=== PATIENT | male | born 1965 | race Caucasian/White ===

== ENCOUNTER 2016-12-21 11:52 | Inpatient (IN) | payer MEDICARE, OTHER ==
[~2016-12-21] VITALS: Ht 170.2 cm; Wt 84.0 kg
[~2016-12-21 11:52] MED LIST: ASPI-535 PO; ATOR80TA18 PO; DOCU-29 PO; EPO10ESRD IJ; HYDR100T7 PO; METO100T PO; MYL80 PO; NEPH PO; OMEG-135 PO; OSLT75C PO; SEVE800T10 PO; VALS80TA2 PO
[2016-12-21] MEDS ORDERED: ALBUTEROL 0.5% (NEB) 2.5 MG/0.5 ML AMP INH STA (12:25)
[2016-12-21] MEDS ORDERED: predniSONE 20 MG TAB PO STA (12:25)
[2016-12-21] MEDS ORDERED: IPRATROPIUM (NEB) 0.5 MG/2.5 ML AMP INH STA (12:25)
--- NOTE | 2016-12-21 12:52 | RADRPT ---
PROCEDURE: XR Chest. CLINICAL INDICATION: Cough. Dyspnea. TECHNIQUE: Frontal chest x-ray was obtained. COMPARISON: Chest x-ray November 27, 2016 FINDINGS: The patient is post CABG. There is cardiomegaly. Mediastinum is not widened. No hilar masses seen . Lungs are clear of any infiltrate or mass. There is a small right pleural effusion. There is no pneumothorax. IMPRESSION: Cardiomegaly. Small right pleural effusion. No pneumonia. .Juwan Davison MD, MD Date Time Electronically viewed and signed by .Juwan Davison MD, MD on 12/21/2016 12:52 .A/
[2016-12-21 13:28] LABS: BASOPHILS % 0.5 % (0.0-2.0); EOSINOPHILS # 0.2 10^3/ul (0.0-0.5); EOSINOPHILS % 1.6 % (0.0-7.0); HEMATOCRIT 33.6 % (42.0-52.0); HEMOGLOBIN 11.1 g/dl (14.0-18.0); LYMPHOCYTES # 1.8 10^3/ul (0.8-2.9); LYMPHOCYTES % 17.2 % (15.0-51.0); MEAN CORPUSCULAR HEMOGLOBIN 32.5 pg (29.0-33.0); MEAN CORPUSCULAR HGB CONC 33.2 g/dl (32.0-37.0); MEAN CORPUSCULAR VOLUME 97.8 fl (82.0-101.0); MEAN PLATELET VOLUME 8.6 fl (7.4-10.4); MONOCYTE # 0.7 10^3/ul (0.3-0.9); MONOCYTES % 6.8 % (0.0-11.0); NEUTROPHIL # 7.7 10^3/ul (1.6-7.5); NEUTROPHILS % 73.9 % (39.0-77.0); PLATELET COUNT 179 10^3/UL (140-440); RED BLOOD COUNT 3.43 10^6/ul (4.70-6.10); RED CELL DISTRIBUTION WIDTH 15.7 % (11.5-14.5); UNCORRECTED WBC 10.4 10^3/ul (4.8-10.8); WHITE BLOOD COUNT 10.4 10^3/ul (4.8-10.8)
[2016-12-21 13:32] LABS: CONDITION 1; LH ANALYZER COMMENTS 1
[2016-12-21 13:37] LABS: CALCIUM 9.4 mg/dl (8.4-10.2)
[2016-12-21 13:49] LABS: TROPONIN-I 0.034 ng/ml (0.00-0.12)
[2016-12-21 13:51] LABS: CREATININE 14.61 mg/dl (0.61-1.24); POTASSIUM 6.2 mmol/L (3.5-5.1)
[2016-12-21] MEDS ORDERED: DEXTROSE 50% 50 ML SYRINGE IV STA (14:27)
[2016-12-21] MEDS ORDERED: INSULIN REGULAR, HUMAN 100 UNIT/1 ML 3ML VIAL IV ONE (14:30)
--- NOTE | 2016-12-21 14:36 | ERA ---
ER Documentation Chief Complaint Date/Time DATE: 12/21/16 TIME: 14:31 Chief Complaint SOB X 2 DAYS HPI 51-year-old man presents with shortness of breath and recent cough 2 days, with generalized weakness. He has had no fevers or chills. He denies chest pain, no calf or leg swelling, no headache or blurry vision. He is requesting albuterol treatment. ROS All systems reviewed and are negative except as per history of present illness. Medications Home Meds Active Scripts Oseltamivir Phosphate* (Tamiflu*) 75 Mg Capsule, 75 MG PO BID for 5 Days, CAP Prov:BRIDGETTE TERESA 11/27/16 Simethicone* (Mylicon*) 80 Mg Tab, 160 MG PO Q6 for DISTENSION/GAS/BLOATING, # 60 TAB 0 Refills Prov:CIRA HUGGINS MD 02/13/15 Reported Medications Valsartan* (Diovan*) 80 Mg Tablet, 80 MG PO DAILY 10/19/12 Multivit/Ca Carb/B Cmplx/Fa* (Ayesha-Lyndsay*) 1 Tab Tab, 1 TAB PO DAILY 09/05/12 Epoetin Ariel (Epogen) 10,000 Units/Ml Soln, 01642 UNITS IJ MWF 09/05/12 Hydralazine Hcl* (Hydralazine Hcl*) 100 Mg Tablet, 100 MG PO Q8 08/28/12 Aspirin Ec (Aspir 81) 81 Mg Tablet.dr, 81 MG PO DAILY 08/09/12 Docusate Sodium (Dss) 100 Mg Capsule, 100 MG PO BID Y 08/09/12 Metoprolol (Lopressor) 100 Mg Tablet, 100 MG PO BID 08/09/12 Atorvastatin (Lipitor) 80 Mg Tablet, 80 MG PO HS 08/09/12 Fish Oil* (Fish Oil*) 1,000 Mg Cap, 1000 MG PO BID 08/09/12 Sevelamer Hcl* (Renagel*) 800 Mg Tablet, 800 MG PO TID 08/09/12 Allergies Allergies: Coded Allergies: No Known Allergies (Verified Allergy, 10/19/12) PMhx/Soc Coronary artery disease, end-stage kidney disease hemodialyzed on MW, last dialysis 2 days ago, chronic anemia, hypertension History of Surgery: Yes (Diaylsis Fistula- right arm, CABG-2011) Anesthesia Reaction: No Hx Neurological Disorder: No Hx Respiratory Disorders: No Hx Cardiac Disorders: Yes (HTN) Hx Psychiatric Problems: No Hx Miscellaneous Medical Probl: Yes (hemodialysis) Hx Alcohol Use: No Hx Substance Use: No Hx Tobacco Use: No Smoking Status: Never smoker FmHx Family History: No diabetes Physical Exam Vitals Vital Signs Date Time Temp Pulse Resp B/P Pulse Ox O2 Delivery O2 Flow Rate FiO2 12/21/16 13:00 Nasal Cannula 2.0 12/21/16 13:00 Nasal Cannula 2 12/21/16 12:37 88 20 98 Nasal Cannula 2.0 12/21/16 12:37 2.0 12/21/16 11:53 98.1 92 18 180/101 99 Physical Exam GENERAL: Well-developed, well-nourished, well-hydrated, in no apparent distress , looks nontoxic in appearance HEENT: Moist mucous membranes, pink conjunctiva, no cervical spine tenderness or step-off deformities, no goiter, no jaundice or icterus, extraocular movements intact without pain. No submandibular induration, and no pharyngeal erythema NEURO: Alert and oriented 3, cranial nerves II through XII intact bilaterally, pupils equal round reactive to light, no focal deficits or facial asymmetry, sensation intact distally Strength 5/5 in upper and lower extremities bilaterally CARDIAC: Regular rate and rhythm, no murmurs rubs or gallops LUNGS: Positive bibasilar crackles, no wheezing or stridor ABDOMEN: Soft nontender, no guarding, no rigidity, no rebound, no psoas sign no obturator sign. Normoactive bowel sounds SKIN: Warm and dry to touch, no abrasions, contusions, or hematomas, no lacerations, no ecchymosis, no target lesions, and without ulcers EXTREMITIES: No clubbing cyanosis or edema, calves are bilaterally symmetrical, no Homans sign, no popliteal cord sign. Distal pulses equal and bilateral PSYCH: Normal affect without agitation or irritability Result Diagram: 12/21/16 1300 12/21/16 1300 Results 24 hrs Laboratory Tests Test 12/21/16 13:00 Anion Gap 26 Basophils # 0.010^3/ul Basophils % 0.5% Blood Morphology Comment Blood Urea Nitrogen 66mg/dl Calcium Level 9.4mg/dl Carbon Dioxide Level 26mmol/L Chloride Level 95mmol/L Creatinine 14.61mg/dl Eosinophils # 0.210^3/ul Eosinophils % 1.6% Glucose Level 73mg/dl Hematocrit 33.6% Hemoglobin 11.1g/dl Lymphocytes # 1.810^3/ul Lymphocytes % 17.2% Mean Corpuscular Hemoglobin 32.5pg Mean Corpuscular Hemoglobin Concent 33.2g/dl Mean Corpuscular Volume 97.8fl Mean Platelet Volume 8.6fl Monocytes # 0.710^3/ul Monocytes % 6.8% Neutrophils # 7.710^3/ul Neutrophils % 73.9% Nucleated Red Blood Cells # 0.010^3/ul Nucleated Red Blood Cells % 0.0/100WBC Platelet Count 72964^3/UL Potassium Level 6.2mmol/L Red Blood Count 3.4310^6/ul Red Cell Distribution Width 15.7% Sodium Level 141mmol/L Troponin I 0.034ng/ml White Blood Count 10.410^3/ul Current Medications Medications (Trade) Dose Ordered Sig/Patricio Route PRN Reason Start Time Stop Time Status Last Admin Dose Admin Albuterol (Proventil 0.5% (Neb)) 10 mg ONCE STAT INH 12/21/16 12:25 12/21/16 12:27 DC 12/21/16 12:37 Ipratropium Olin (Atrovent 0.02% (Neb)) 1 mg ONCE STAT INH 12/21/16 12:25 12/21/16 12:27 DC 12/21/16 12:37 Prednisone (Prednisone) 40 mg ONCE STAT PO 12/21/16 12:25 12/21/16 12:27 DC 12/21/16 13:04 Dextrose (D50w Syringe) 50 ml ONCE STAT IV 12/21/16 14:27 12/21/16 14:29 DC Insulin Human Regular (Humulin R) 8 unit ONCE ONCE IV 12/21/16 14:30 12/21/16 14:31 Procedures/MDM IV line was established patient was placed on cardiac nurse specialist rhythm strip revealed a sinus rhythm at about 90 bpm with upright P and T waves. For complaints of shortness of breath I administered albuterol 10 mg via nebulizer, and ipratropium 1 mg via nebulizer as well as prednisone 40 mg p.o. 1 view chest x-ray performed, read by me there is cardiomegaly and sternotomy wires in place, no acute infiltrates, no pneumothorax. EKG performed, read by me reveals normal sinus rhythm at 91 bpm, normal axis, and a right ventricular conduction delay with a QRS duration of 114 ms, no concerning ST elevations or depressions noted and evidence of left ventricular hypertrophy in precordial leads. CBC was unremarkable, electrolytes revealed kidney disease and hyperkalemia at 6.2. I administered dextrose 25 g IV and regular insulin 8 units IV. Patient will be admitted to telemetry setting for dialysis and hyperkalemia management. Departure Diagnosis: Primary Impression: Hyperkalemia Additional Impression: Pulmonary edema Qualified Code: J81.0 - Acute pulmonary edema Condition: GARY Luna MD Dec 21, 2016 14:36
[2016-12-21] MEDS ORDERED: METO25TA7 PO (15:35)
[2016-12-21] MEDS ORDERED: ATOR40TA68 PO (15:36)
[2016-12-21] MEDS ORDERED: LOSA100T7 PO (15:37)
[2016-12-21 15:51] VITALS: Ht 170.2 cm; Wt 84.0 kg
[2016-12-21 16:04] VITALS: BP 189/107; PULSE 101; RESP 18
[2016-12-21 16:24] VITALS: PULSE 102
[2016-12-21] MEDS ORDERED: ONDANSETRON 4 MG INJ IV PRN (17:30)
[2016-12-21] MEDS ORDERED: ZOLPIDEM 5 MG TAB PO PRN (17:30)
[2016-12-21] MEDS ORDERED: morphine 2 MG INJ IV PRN (17:30)
[2016-12-21] MEDS ORDERED: ACETAMINOPHEN 325 MG TAB PO PRN (17:30)
[2016-12-21] MEDS ORDERED: HYDROCODONE/APAP (5/325) TAB PO PRN (17:30)
[2016-12-21] MEDS ORDERED: NACL 0.9% 3 ML SYG IV SCH (17:30)
[2016-12-21] MEDS: LOSARTAN 50 MG TAB PO SCH (18:06)
[2016-12-21] MEDS: METOPROLOL (XL) 25 MG TAB PO SCH (18:06)
--- NOTE | 2016-12-21 19:28 | HP ---
DATE OF ADMISSION: 12/21/2016 CHIEF COMPLAINT: Weakness. HISTORY OF PRESENT ILLNESS: The patient is a 51-year-old male with history of end-stage renal disea se and hypertension as well as coronary artery disease, status post bypass surgery 4 years ago. The patient presents with generalized weakness for the past several weeks. States that he did present to the ED, was given antibiotics, but continued to get worse after that. He states that he had pacheco estion, coughing, and weakness. In the ED, the patient's potassium was found to be 6.2. He does fo llow up with his manager life, Dr. Catarino Salomon, and does receive dialysis Thursday, Thursday, Thu. The patient has no other complaints at this time. PAST MEDICAL HISTORY: 1. End-stage renal disease secondary to hypertension. 2. Coronary disease, status post CABG approximately 4 years ago. HOME MEDICATIONS: 1. Aspirin. 2. Lipitor. 3. Losartan. 4. Metoprolol. 5. Multivitamin. 6. Renagel. ALLERGIES: NO KNOWN DRUG ALLERGIES. FAMILY HISTORY: Denies. SOCIAL HISTORY: Denies any current alcohol, tobacco, or drug abuse. REVIEW OF SYSTEMS: A 12-point review of systems negative except that as in HPI. PHYSICAL EXAMINATION: VITAL SIGNS: Temperature is 97.8, pulse 102, respiration is 18, BP is 189/107, saturation 96%. GENERAL: No acute distress, alert and oriented. HEENT: Normocephalic, atraumatic. LUNGS: Clear to auscultation. CARDIOVASCULAR: Regular rate and rhythm. ABDOMEN: Nondistended, nontender, soft. EXTREMITIES: No clubbing, cyanosis, or edema. LABORATORIES: White count 7.4, hemoglobin 11.1, platelets are 139. Chemistry: Sodium is 141, pota ssium is 6.2, chloride is 95, BUN 66, creatinine is 14.6, anion gap is 26. DIAGNOSTICS: Chest x-ray shows cardiomegaly, small right pleural effusion. No pneumonia. ASSESSMENT AND PLAN: 1. Generalized weakness, possibly secondary to patient's hyperkalemia versus upper respiratory fernandez l infection. The patient states that he has been experiencing some congestion and cough for the pas t several weeks. He has no white count, no signs of pneumonia on chest x-ray. No indication for an tibiotics. The patient does need dialysis for his hyperkalemia. 2. End-stage renal disease with hyperkalemia. We will contact patient's manager life, Dr. Catarino Salomon's group for dialysis. The patient is scheduled for dialysis Mondays, Wednesdays, Fridays. 3. Hypertension. Continue home medicines. 4. History of coronary artery disease. Continue home medications. 5. Prophylaxis. Ambulation. Dictated By: AIYANA CHARLES MD BS/NICANOR Conf#: [id number] DID#: [id number]
[2016-12-21 19:50] LABS: CALCIUM 9.4 mg/dl (8.4-10.2)
[2016-12-21 19:57] LABS: CREATININE 15.43 mg/dl (0.61-1.24)
[2016-12-21 20:00] VITALS: BP 181/109; PULSE 97; RESP 20
[2016-12-21] MEDS ORDERED: GUAIFENESIN/CODEINE 5ML CUP PO PRN (21:30)
[2016-12-21] MEDS: ATORVASTATIN 40 MG TAB PO SCH (22:01)
[2016-12-21] MEDS: SEVELAMER 800 MG TAB PO SCH (22:01)
[2016-12-21] MEDS ORDERED: ALBUTEROL 0.5% (NEB) 2.5 MG/0.5 ML AMP HHN STA (22:09)
[2016-12-21] MEDS ORDERED: NA POLYST SULFON 15 GM/60 ML BTL PO STA (22:09)
[2016-12-21 23:58] VITALS: BP 150/84; RESP 20
[2016-12-22] VITALS (19 sets, daily range): BP systolic 133–167; BP diastolic 76–98; PULSE 76–91; RESP 16–21
[2016-12-22 06:47] LABS: BASOPHILS % 0.2 % (0.0-2.0); HEMATOCRIT 29.4 % (42.0-52.0); HEMOGLOBIN 9.9 g/dl (14.0-18.0); LYMPHOCYTES # 0.8 10^3/ul (0.8-2.9); LYMPHOCYTES % 8.5 % (15.0-51.0); MEAN CORPUSCULAR HGB CONC 33.8 g/dl (32.0-37.0); MEAN CORPUSCULAR VOLUME 97.7 fl (82.0-101.0); MEAN PLATELET VOLUME 8.8 fl (7.4-10.4); MONOCYTE # 0.5 10^3/ul (0.3-0.9); MONOCYTES % 5.2 % (0.0-11.0); NEUTROPHIL # 7.8 10^3/ul (1.6-7.5); NEUTROPHILS % 86.1 % (39.0-77.0); PLATELET COUNT 160 10^3/UL (140-440); RED BLOOD COUNT 3.01 10^6/ul (4.70-6.10); RED CELL DISTRIBUTION WIDTH 15.6 % (11.5-14.5)
[2016-12-22 06:55] LABS: CONDITION 1; LH ANALYZER COMMENTS 1
[2016-12-22 06:57] LABS: POTASSIUM 5.6 mmol/L (3.5-5.1)
[2016-12-22 07:01] LABS: MAGNESIUM 2.8 mg/dl (1.7-2.5)
[2016-12-22 07:09] LABS: CREATININE 15.75 mg/dl (0.61-1.24)
[2016-12-22] MEDS ORDERED: METOPROLOL (XL) 25 MG TAB PO SCH (09:00)
[2016-12-22] MEDS ORDERED: LOSARTAN 50 MG TAB PO SCH (09:00)
[2016-12-22] MEDS: SEVELAMER 800 MG TAB PO SCH ×3 (10:24→21:57)
[2016-12-22] MEDS: MULTIVIT/CA CARB/B CMPLX/FA TAB PO SCH (10:25)
[2016-12-22] MEDS: LOSARTAN 50 MG TAB PO SCH (10:26)
[2016-12-22] MEDS: ASPIRIN (EC) 81 MG TAB PO SCH (10:26)
[2016-12-22] MEDS: METOPROLOL (XL) 25 MG TAB PO SCH (10:26)
--- NOTE | 2016-12-22 10:35 | CONS ---
DATE OF ADMISSION: 12/21/2016 DATE OF CONSULTATION: REASON FOR CONSULTATION: End-stage renal disease care. HISTORY OF PRESENT ILLNESS: This is a 51-year-old gentleman with known end-stage renal disease due to history of [id number] diabetes mellitus and hypertension, currently on dialysis for e past 4 to 5 years who dialyzes every Thursday, Thursday, and Thursday. He states he has had ill described upper respiratory illness characterized by low grade fever, rare chills, cough and scant mucus production. He presented to the emergency room yesterday with those symptoms, was noted to be hypertensive with a blood pressure of 180/100 and mildly hypoxemic requiring 2 liters of O2 to maintain a sat of 98%. Examination in the emergency room noted a few fine rales, potassium was elevated at 6.2. Chest x-ra y showed no arianne infiltrate. He was subsequently admitted. Currently, he is on dialysis and feels a bit better. He denies any chest pain or shortness of breat h currently. PHYSICAL EXAMINATION: VITAL SIGNS: He is afebrile, blood pressure 148/80, heart rate 72 and regular, respirations are 12 and unlabored, O2 saturation is 97% on 1 liter. SKIN: No rash. HEAD: Normocephalic, atraumatic. EYES: Pupils appear round, reactive. Extraocular movements are full. Sclerae are anicteric. Phar ynx no lesions. NECK: JVP is not distended. There is no adenopathy or thyromegaly. Carotids are 2+. BACK: No CVAT. LUNGS: Clear without any wheezes heard currently. HEART: S1, S2, regular rate and rhythm, no murmurs. ABDOMEN: Soft and nontender. Normoactive bowel sounds. EXTREMITIES: No cyanosis, clubbing or edema. Distal pulses are intact. He has a functioning right upper extremity AV fistula. LABORATORY DATA: White count 9.0, hemoglobin 9.9, hematocrit 29.4, platelet count 160,000. Sodium 139, potassium 5.6, chloride 94, bicarbonate 24, BUN 78, creatinine 15.75, glucose 117, calcium 9.0, magnesium is 2.8, troponin was 0.03. Chest x-ray status post CABG with cardiomegaly, no hilar masses or pulmonary infiltrates. EKG was n ot done. PROBLEM LIST: 1. End-stage renal disease due to diabetes and hypertension, maintained on outpatient hemodialysis every Thursday, Thursday, and Thursday. 2. Mild hyperkalemia, currently being treated with dialysis. 3. Known coronary artery disease, status post coronary artery bypass grafting in 2011. Currently a symptomatic. 4. Cough, scant sputum, low-grade fever, and achiness consistent with viral syndrome. 5. Hypertension, currently well controlled. 6. Hyperlipidemia, on a statin. RECOMMENDATIONS: 1. Dialysis on going, with ultrafiltration as tolerated. 2. Follow up chest x-ray. 3. Continue treatment for upper respiratory infection as per primary care. 4. Continue home medications. 5. Further recommendations pending response to above. Dictated By: NOLVIA SHELTON MD, MM/NICANOR Conf#: [id number] DID#: [id number]
--- NOTE | 2016-12-22 11:01 | RADRPT ---
PROCEDURE: Chest 1 views. CLINICAL INDICATION: Shortness of breath TECHNIQUE: AP views of the chest were obtained. COMPARISON: December 21, 2016 FINDINGS: The heart is large. Median sternotomy wires and surgical clips overlie the heart. Central pulmonary vascular congestion and interstitial prominence is seen in both lungs. Patchy right lower lung inf iltrates combined with small pleural effusion are stable, given differences in technique. Osseous s tructures are intact. IMPRESSION: Cardiomegaly . Stable central pulmonary vascular congestion and interstitial prominence in both lungs. Stable right lower lung infiltrates combined with small pleural effusion. RPTAT: AA .José Ann MD, MD Date Time Electronically viewed and signed by .José Ann MD, MD on 12/22/2016 11:00 .P/
[2016-12-22] MEDS: ALBUTEROL 0.5% (NEB) 2.5 MG/0.5 ML AMP HHN SCH ×3 (11:14→19:22)
--- NOTE | 2016-12-22 14:20 | PN ---
DATE: 12/22/2016 TIME OF EVALUATION: 1 p.m. SUBJECTIVE DATA: Complains of dyspnea. Denies any chest pain. OBJECTIVE DATA: VITAL SIGNS: Temperature 98.0, pulse rate 85, respiratory rate 16, blood pressure 156/76, oxygen saturation 93% on low flow O2. GENERAL: This is slightly overweight male lying in bed in no apparent distress. HEENT: Head normocephalic and atraumatic. Eyes: Anicteric sclerae. Conjunctivae clear. ENT: Nasal septum is midline. Oral mucosa is moist. NECK: Supple. No JVD noticed. RESPIRATORY: Bilaterally diminished breath sounds. A few fine rales heard at the bases. No use of accessory muscles of respiration. CARDIAC: Regular rate and rhythm. S1, S2 heard. Scar from previous sternotomy with some keloid formation. ABDOMEN: Soft, nontender and nondistended. Bowel sounds positive in all 4 quadrants. GENITOURINARY: Deferred. EXTREMITIES: No cyanosis, no clubbing. Bilateral lower extremity trace edema. Peripheral pulses palpable. NEUROLOGIC: The patient is awake, alert and oriented. Cranial nerves are grossly intact. LAB & DIAGNOSTIC DATA: WBC 9.0, hemoglobin 9.9, hematocrit 29.4, platelet count 160. Sodium 139, potassium 5.6, chloride 94, carbon is a 24, anion gap 27, BUN 70, creatinine 15.75, glucose 117, calcium 9.0, magnesium 2.8. ASSESSMENT AND PLAN: 1. Hyperkalemia. Most probably secondary to worsening renal function. Improving. The patient on hemodialysis as per nephrology. 2. End-stage renal disease on hemodialysis. Continue hemodialysis as per nephrology recommendations. 3. Essential hypertension. Continue antihypertensives. Blood pressure fairly well controlled. 4. History of coronary artery disease. Status post coronary artery bypass graft. Continue aspirin. 5. Normocytic normochromic anemia, most probably anemia of chronic kidney disease. Monitor H and H closely. 6. Fluid, electrolytes and nutrition. Continue renal diet. 7. Deep venous thrombosis prophylaxis with bilateral sequential compression devices. 8. Gastrointestinal prophylaxis. Histamine 2 receptor blockers. PLAN: Continue hemodialysis as per nephrology. The patient is unstable to be discharged at this time. The case was discussed with Dr. Coley. STEPHEN COLEY MD, AM/NICANOR Conf#: [id number] [facility]#: [id number] MTDD
[2016-12-22] MEDS: FAMOTIDINE 20 MG TAB PO SCH (14:50)
[2016-12-22] MEDS: ATORVASTATIN 40 MG TAB PO SCH (21:57)
[2016-12-23] VITALS (10 sets, daily range): BP systolic 141–172; BP diastolic 84–100; PULSE 79–88; RESP 16–20
[2016-12-23] MEDS: ALBUTEROL 0.5% (NEB) 2.5 MG/0.5 ML AMP HHN SCH ×3 (01:16→14:19)
--- NOTE | 2016-12-23 08:07 | CONS ---
Date/Time of Note Date/Time of Note DATE: 12/23/16 TIME: 08:05 Assessment/Plan Assessment/Plan Problems: (1) ESRD (end stage renal disease) on dialysis Comment: did well yesterday... next HD in am (2) Hyperkalemia Status: Acute Comment: resolved post HD (3) Pulmonary edema Status: Acute Comment: resolved w UF Qualifiers: Chronicity: acute Qualified Code: J81.0 - Acute pulmonary edema (4) Viral syndrome Status: Acute Comment: better Consultation Date/Type/Reason Admit Date/Time Dec 21, 2016 at 14:56 Initial Consult Date 24 HR Interval Summary Free Text/Dictation looks well... no sob currently Exam/Review of Systems Vital Signs Vitals Vital Signs Date Time Temp Pulse Resp B/P Pulse Ox O2 Delivery O2 Flow Rate FiO2 12/23/16 07:49 97.8 85 18 166/97 96 12/23/16 04:15 Nasal Cannula 1.5 Intake and Output 12/22/16 12/22/16 12/23/16 15:00 23:00 07:00 Intake Total 500 ml 520 ml 250 ml Output Total 2500 ml Balance -2000 ml 520 ml 250 ml Exam Constitutional: alert Neck: supple Respiratory: clear to auscultation Cardiovascular: regular rate and rhythm Gastrointestinal: soft Extremities: normal pulses (wellfxn RUE AVG) Results Result Diagram: 12/22/1652012/22/16520 Medications Medications Current Medications Ondansetron HCl (Zofran Inj) 4 mg Q6H PRN IV NAUSEA AND/OR VOMITING; Start at 17:30 Acetaminophen (Tylenol Tab) 650 mg Q6H PRN PO PAIN LEVEL 1-3 OR FEVER; Start at 17:30 Acetaminophen/ Hydrocodone Bitart ([place] (5/325)) 1 tab Q6H PRN PO MODERATE PAIN LEVEL 4-6; Start 12/21/16 at 17:30 Morphine Sulfate (morphine) 2 mg Q4H PRN IV SEVERE PAIN LEVEL 7-10; Start 12/21 at 17:30 Zolpidem Tartrate (Ambien) 5 mg QHS PRN PO SLEEP; Start 12/21/16 at 17:30 Aspirin (Halfprin) 81 mg DAILY PO Last administered on 12/22/16t 10:26; Admin Dose 81 MG; Start 12/22/16 at 09:00 Atorvastatin Calcium (Lipitor) 40 mg QHS PO Last administered on 12/22/16 21: 57; Admin Dose 40 MG; Start 12/21/16 at 21:00 Multivit/Ca Carb/ B Cmplx/FA/Prenat (Ayesha-Lyndsay) 1 tab DAILY PO Last administered on 12/22/16 10:25; Admin Dose 1 TAB; Start 12/22/16 at 09:00 Sevelamer HCl (Renagel) 800 mg TID PO Last administered on 12/22/16 21:57; Admin Dose 800 MG; Start 12/21/16 at 21:00 Losartan Potassium (Cozaar) 100 mg DAILY PO Last administered on 12/22/16 10: 26; Admin Dose 100 MG; Start 12/21/16 at 17:30 Metoprolol Succinate (Toprol Xl) 25 mg DAILY PO Last administered on 12/22/16 10:26; Admin Dose 25 MG; Start 12/21/16 at 17:30 Clonidine (Catapres) 0.1 mg Q6H PRN PO ELEVATED BLOOD PRESSURE Last administered on 12/23/16 04:27; Admin Dose 0.1 MG; Start 12/21/16 at 21:30 Guaifenesin/ Codeine Phosphate (Robitussin Ac Liquid Cup) 10 ml Q4H PRN PO COUGH Last administered on 12/21/16 22:01; Admin Dose 10 ML; Start 12/21/16 at 21:30 Famotidine (Pepcid) 20 mg DAILY PO Last administered on 12/22/16 14:50; Admin Dose 20 MG; Start 12/22/16 at 14:00 NOLVIA SHELTON MD Dec 23, 2016 08:07
[2016-12-23] MEDS: SEVELAMER 800 MG TAB PO SCH ×2 (09:22→13:14)
[2016-12-23] MEDS: FAMOTIDINE 20 MG TAB PO SCH (09:22)
[2016-12-23] MEDS: MULTIVIT/CA CARB/B CMPLX/FA TAB PO SCH (09:22)
[2016-12-23] MEDS: ASPIRIN (EC) 81 MG TAB PO SCH (09:22)
[2016-12-23] MEDS: LOSARTAN 50 MG TAB PO SCH (09:27)
[2016-12-23] MEDS: METOPROLOL (XL) 25 MG TAB PO SCH (09:27)
[2016-12-23 12:24] LABS: BASOPHIL # 0.1 10^3/ul (0.0-0.1); BASOPHILS % 0.5 % (0.0-2.0); EOSINOPHILS # 0.3 10^3/ul (0.0-0.5); EOSINOPHILS % 3.4 % (0.0-7.0); HEMATOCRIT 33.2 % (42.0-52.0); HEMOGLOBIN 10.9 g/dl (14.0-18.0); LYMPHOCYTES # 1.5 10^3/ul (0.8-2.9); LYMPHOCYTES % 14.7 % (15.0-51.0); MEAN CORPUSCULAR HEMOGLOBIN 32.6 pg (29.0-33.0); MEAN CORPUSCULAR HGB CONC 32.8 g/dl (32.0-37.0); MEAN CORPUSCULAR VOLUME 99.3 fl (82.0-101.0); MEAN PLATELET VOLUME 8.7 fl (7.4-10.4); MONOCYTE # 0.7 10^3/ul (0.3-0.9); MONOCYTES % 7.1 % (0.0-11.0); NEUTROPHIL # 7.5 10^3/ul (1.6-7.5); NEUTROPHILS % 74.3 % (39.0-77.0); PLATELET COUNT 166 10^3/UL (140-440); RED BLOOD COUNT 3.34 10^6/ul (4.70-6.10); RED CELL DISTRIBUTION WIDTH 15.9 % (11.5-14.5); UNCORRECTED WBC 10.1 10^3/ul (4.8-10.8); WHITE BLOOD COUNT 10.1 10^3/ul (4.8-10.8)
[2016-12-23 12:54] LABS: CONDITION 1; LH ANALYZER COMMENTS 1
[2016-12-23 13:09] LABS: CREATININE 12.79 mg/dl (0.61-1.24)
[2016-12-23 13:10] LABS: CALCIUM 8.7 mg/dl (8.4-10.2)
[2016-12-23 13:27] LABS: MAGNESIUM 2.6 mg/dl (1.7-2.5); PHOSPHORUS 7.7 mg/dl (2.5-4.9)
--- NOTE | 2016-12-23 13:45 | DS ---
Date/Time of Note Date/Time of Note DATE: 12/23/16 TIME: 13:40 Discharge Summary Admission/Discharge Info Admit Date/Time Dec 21, 2016 at 14:56 Discharge Date/Time Final Diagnosis 1. Hyperkalemia. due to renal failure, resolved 2. End-stage renal disease on hemodialysis. Continue hemodialysis as per nephrology recommendations. 3. Essential hypertension. Continue antihypertensives. 4. History of coronary artery disease. Status post coronary artery bypass graft. stable, Continue aspirin. 5. Normocytic normochromic anemia, most probably anemia of chronic kidney disease. follow up with PCP Patient Condition: Stable Hx of Present Illness he patient is a 51-year-old male with history of end-stage renal disease and hypertension as well as coronary artery disease, status post bypass surgery 4 years ago. The patient presents with generalized weakness for the past several weeks. States that he did present to the ED, was given antibiotics, but continued to get worse after that. He states that he had congestion, coughing, and weakness. In the ED, the patient's potassium was found to be 6.2. He does follow up with his sleeve setter lockstitch, Dr. Catarino Saolmon, and does receive dialysis Thursday, Thursday, Fridays. The patient has no other complaints at this time. Hospital Course K was 6.2 on admission that improved to 5 on HD. Last H/H 10.9/38.3. Patient is doing well. He is discharged and follow up with PCP and nephrology. Home Meds Reported Medications Losartan Potassium* (Losartan Potassium*) 100 Mg Tablet, 100 MG PO DAILY, TAB 12/21/16 Atorvastatin* (Atorvastatin*) 40 Mg Tablet, 40 MG PO QHS, #30 TAB 12/21/16 Metoprolol Succinate* (Toprol XL*) 25 Mg Tab.sr.24h, 25 MG PO DAILY, #30 TAB 12/21/16 Multivit/Ca Carb/B Cmplx/Fa* (Ayesha-Lyndsay*) 1 Tab Tab, 1 TAB PO DAILY 09/05/12 Aspirin Ec (Aspir 81) 81 Mg Tablet., 81 MG PO DAILY 08/09/12 Sevelamer Hcl* (Renagel*) 800 Mg Tablet, 800 MG PO TID 08/09/12 Discontinued Reported Medications Valsartan* (Diovan*) 80 Mg Tablet, 80 MG PO DAILY 10/19/12 Epoetin Ariel (Epogen) 10,000 Units/Ml Soln, 72377 UNITS IJ MWF 09/05/12 Hydralazine Hcl* (Hydralazine Hcl*) 100 Mg Tablet, 100 MG PO Q8 08/28/12 Docusate Sodium (Dss) 100 Mg Capsule, 100 MG PO BID Y 08/09/12 Metoprolol (Lopressor) 100 Mg Tablet, 100 MG PO BID 08/09/12 Atorvastatin (Lipitor) 80 Mg Tablet, 80 MG PO HS 08/09/12 Fish Oil* (Fish Oil*) 1,000 Mg Cap, 1000 MG PO BID 08/09/12 Discontinued Scripts Oseltamivir Phosphate* (Tamiflu*) 75 Mg Capsule, 75 MG PO BID for 5 Days, CAP Prov:BRIDGETTE TERESA 11/27/16 Simethicone* (Mylicon*) 80 Mg Tab, 160 MG PO Q6 for DISTENSION/GAS/BLOATING, # 60 TAB 0 Refills Prov:CIRA HUGGINS MD 02/13/15 Follow-up Plan PCP and nephrology 1 week Pending Labs Laboratory Tests Test 12/23/16 11:20 Anion Gap 26 (8-16) Basophils # 0.110^3/ul (0.0-0.1) Basophils % 0.5% (0.0-2.0) Blood Morphology Comment Blood Urea Nitrogen 55mg/dl (7-20) Calcium Level 8.7mg/dl (8.4-10.2) Carbon Dioxide Level 29mmol/L (21-31) Chloride Level 92mmol/L (97-110) Creatinine 12.79mg/dl (0.61-1.24) Eosinophils # 0.310^3/ul (0.0-0.5) Eosinophils % 3.4% (0.0-7.0) Glucose Level 85mg/dl (70-220) Hematocrit 33.2% (42.0-52.0) Hemoglobin 10.9g/dl (14.0-18.0) Lymphocytes # 1.510^3/ul (0.8-2.9) Lymphocytes % 14.7% (15.0-51.0) Magnesium Level 2.6mg/dl (1.7-2.5) Mean Corpuscular Hemoglobin 32.6pg (29.0-33.0) Mean Corpuscular Hemoglobin Concent 32.8g/dl (32.0-37.0) Mean Corpuscular Volume 99.3fl (82.0-101.0) Mean Platelet Volume 8.7fl (7.4-10.4) Monocytes # 0.710^3/ul (0.3-0.9) Monocytes % 7.1% (0.0-11.0) Neutrophils # 7.510^3/ul (1.6-7.5) Neutrophils % 74.3% (39.0-77.0) Nucleated Red Blood Cells # 0.010^3/ul (0.0-0.0) Nucleated Red Blood Cells % 0.0/100WBC (0.0-0.0) Phosphorus Level 7.7mg/dl (2.5-4.9) Platelet Count 39975^3/UL (140-440) Potassium Level 5.0mmol/L (3.5-5.1) Red Blood Count 3.3410^6/ul (4.70-6.10) Red Cell Distribution Width 15.9% (11.5-14.5) Sodium Level 142mmol/L (135-144) White Blood Count 10.110^3/ul (4.8-10.8) SALOME GANDHI MD Dec 23, 2016 13:45
== END 2016-12-23 16:25 | disposition home or self-care (01) | DRG 640 ==
LOC: E/R 11:52 → TEL 14:56
PROVIDERS: ADMIT Internal Medicine; ATTEND Internal Medicine
PROC: 5A1D60Z (ICD-10-PCS; principal; 2016-12-23)
DX: E87.5 Hyperkalemia (principal); N18.6 End stage renal disease; I12.0 Hypertensive chronic kidney disease with stage 5 chronic kidney disease or end stage renal disease; E11.22 Type 2 diabetes mellitus with diabetic chronic kidney disease; Z99.2 Dependence on renal dialysis; I25.10 Atherosclerotic heart disease of native coronary artery without angina pectoris; D64.9 Anemia, unspecified; Z95.1 Presence of aortocoronary bypass graft; Z79.82 Long term (current) use of aspirin; E78.5 Hyperlipidemia, unspecified; B34.9 Viral infection, unspecified
CPT/HCPCS: 36415; 71010; 80048; 83036; 83735; 84100; 84484; 85025; 87400; 90935; 93005; 94640; 94644; 94664; 96374; 96375; J1815; J7512

== ENCOUNTER 2016-12-27 20:11 | Emergency (ER) | payer MEDICARE, OTHER ==
[~2016-12-27] VITALS: Ht 170.2 cm; Wt 85.0 kg
[~2016-12-27 20:11] MED LIST changes: +ATOR40TA68 PO; -ATOR80TA18 PO; -DOCU-29 PO; -EPO10ESRD IJ; -HYDR100T7 PO; +LOSA100T7 PO; -METO100T PO; +METO25TA7 PO; -MYL80 PO; -OMEG-135 PO; -OSLT75C PO; -VALS80TA2 PO
[2016-12-27 20:15] VITALS: Ht 170.2 cm; Wt 85.0 kg
[2016-12-27] MEDS ORDERED: ALBUTEROL 0.5% (NEB) 2.5 MG/0.5 ML AMP NEB STA (23:20)
[2016-12-27] MEDS ORDERED: IPRATROPIUM (NEB) 0.5 MG/2.5 ML AMP NEB STA (23:20)
[2016-12-27] MEDS ORDERED: hydrALAzine 20 MG INJ IV ONE (23:30)
[2016-12-27] MEDS ORDERED: NICARDipine HCL 30 MG CAPSULE PO ONE (23:30)
[2016-12-27 23:41] LABS: BASOPHILS % 0.5 % (0.0-2.0); CONDITION 1; EOSINOPHILS # 0.2 10^3/ul (0.0-0.5); EOSINOPHILS % 1.7 % (0.0-7.0); HEMOGLOBIN 11.2 g/dl (14.0-18.0); LYMPHOCYTES # 1.8 10^3/ul (0.8-2.9); LYMPHOCYTES % 16.7 % (15.0-51.0); MEAN CORPUSCULAR HEMOGLOBIN 32.8 pg (29.0-33.0); MEAN CORPUSCULAR HGB CONC 33.9 g/dl (32.0-37.0); MEAN CORPUSCULAR VOLUME 96.9 fl (82.0-101.0); MEAN PLATELET VOLUME 9.3 fl (7.4-10.4); MONOCYTE # 0.8 10^3/ul (0.3-0.9); MONOCYTES % 7.6 % (0.0-11.0); NEUTROPHILS % 73.5 % (39.0-77.0); PLATELET COUNT 180 10^3/UL (140-440); RED CELL DISTRIBUTION WIDTH 15.3 % (11.5-14.5); UNCORRECTED WBC 10.8 10^3/ul (4.8-10.8); WHITE BLOOD COUNT 10.8 10^3/ul (4.8-10.8)
[2016-12-27 23:42] LABS: LH ANALYZER COMMENTS 1
[2016-12-27 23:48] LABS: ALBUMIN 4.5 g/dl (3.3-4.9)
[2016-12-27 23:49] LABS: POTASSIUM 5.1 mmol/L (3.5-5.1)
[2016-12-27 23:51] LABS: ALBUMIN/GLOBULIN RATIO 1.6; BILIRUBIN,INDIRECT 0.3 mg/dl (0-1.1); BILIRUBIN,TOTAL 0.3 mg/dl (0.2-1.3); CREATININE 12.42 mg/dl (0.61-1.24); TOTAL PROTEIN 7.3 g/dl (6.1-8.1)
[2016-12-27 23:52] LABS: CALCIUM 9.4 mg/dl (8.4-10.2)
[2016-12-28 00:03] LABS: TROPONIN-I 0.034 ng/ml (0.00-0.12)
--- NOTE | 2016-12-28 00:49 | RADRPT ---
PROCEDURE: CHEST - 1 VIEW CLINICAL INDICATION: 51-year-old male with chest pain. TECHNIQUE: A single frontal AP semi-erect view of the chest was performed portably. The images we re reviewed on a PACS workstation. COMPARISON: Chest x-ray December 22, 2016. FINDINGS: The patient has had a prior median sternotomy. The cardiomediastinal silhouette is moderately enlar ged but without significant interval change. There is mild pulmonary vascular congestion. There is elevation right hemidiaphragm. There is mild right pleural effusion with basilar compressive atele ctasis. There is no evidence for focal consolidation. There is no evidence for pneumothorax. IMPRESSION: 1. Status post median sternotomy. 2. Cardiomegaly. 3. Pulmonary vascular congestion. 4. Elevated right hemidiaphragm. 5. Mild right pleural effusion with basilar compressive atelectasis. .Keven Kelly MD, Date Time Electronically viewed and signed by .Keven Kelly MD, on 12/28/2016 00:49 .M/
[2016-12-28 01:00] VITALS: BP 149/88; PULSE 100; RESP 20; TEMP 99
[2016-12-28] MEDS ORDERED: PRED20TA PO (01:12)
[2016-12-28] MEDS ORDERED: ALBU8.5H3 INH (01:12)
--- NOTE | 2016-12-28 01:24 | ERD ---
ER Documentation Chief Complaint Date/Time DATE: 12/28/16 TIME: 01:20 Chief Complaint SOB lately, on HD was admitted recently x hyperK+ HPI This is a 51-year-old male who is complaining of cough with some white productive sputum for the past 7-10 days with no fever. Is also complaining of some shortness of breath today and he feels like this is what happens when he gets his high blood pressure. The patient takes metoprolol 25 mg a day and losartan 100 mg a day. He says he is compliant with his medication. He has no chest pain. He did go to dialysis yesterday. He says he has some dyspnea on exertion and mild orthopnea. No nausea vomiting no pain in the elbows jaw shoulder. No abdominal pain back pain. He says when he coughs he has wheezing. No blurry vision no headache, no focal neurologic complaint ROS All systems reviewed and are negative except as per history of present illness. Medications Home Meds Active Scripts Prednisone* (Prednisone*) 20 Mg Tab, 40 MG PO DAILY for 4 Days, TAB Prov:LEYDA BAGLEY DO 12/28/16 Albuterol Sulfate* (Proair HFA*) 8.5 Gm Hfa.aer.ad, 2 PUFF INH Q4, #1 INHALER Prov:LEYDA BAGLEY DO 12/28/16 Reported Medications Losartan Potassium* (Losartan Potassium*) 100 Mg Tablet, 100 MG PO DAILY, TAB 12/21/16 Atorvastatin* (Atorvastatin*) 40 Mg Tablet, 40 MG PO QHS, #30 TAB 12/21/16 Metoprolol Succinate* (Toprol XL*) 25 Mg Tab.sr.24h, 25 MG PO DAILY, #30 TAB 12/21/16 Multivit/Ca Carb/B Cmplx/Fa* (Ayesha-Lyndsay*) 1 Tab Tab, 1 TAB PO DAILY 09/05/12 Aspirin Ec (Aspir 81) 81 Mg Tablet.dr, 81 MG PO DAILY 08/09/12 Sevelamer Hcl* (Renagel*) 800 Mg Tablet, 800 MG PO TID 08/09/12 Discontinued Reported Medications Valsartan* (Diovan*) 80 Mg Tablet, 80 MG PO DAILY 10/19/12 Epoetin Ariel (Epogen) 10,000 Units/Ml Soln, 57521 UNITS IJ MWF 10/7/12 Hydralazine Hcl* (Hydralazine Hcl*) 100 Mg Tablet, 100 MG PO Q8 08/28/12 Docusate Sodium (Dss) 100 Mg Capsule, 100 MG PO BID Y 08/09/12 Metoprolol (Lopressor) 100 Mg Tablet, 100 MG PO BID 08/09/12 Atorvastatin (Lipitor) 80 Mg Tablet, 80 MG PO HS 08/09/12 Fish Oil* (Fish Oil*) 1,000 Mg Cap, 1000 MG PO BID 08/09/12 Discontinued Scripts Oseltamivir Phosphate* (Tamiflu*) 75 Mg Capsule, 75 MG PO BID for 5 Days, CAP Prov:BRIDGETTE TERESA 11/27/16 Simethicone* (Mylicon*) 80 Mg Tab, 160 MG PO Q6 for DISTENSION/GAS/BLOATING, # 60 TAB 0 Refills Prov:CIRA HUGGINS MD 02/13/15 Allergies Allergies: Coded Allergies: No Known Allergies (Verified Allergy, Unknown, 12/27/16) PMhx/Soc History of Surgery: Yes (CABG SANTINO fistula) Anesthesia Reaction: No Hx Neurological Disorder: No Hx Respiratory Disorders: No Hx Cardiac Disorders: Yes (CABG HTN elev. cholesterol) Hx Psychiatric Problems: No Hx Miscellaneous Medical Probl: Yes (CKD, DYALISIS) Hx Alcohol Use: Yes (pst) Hx Substance Use: No Hx Tobacco Use: Yes Smoking Status: Former smoker FmHx Family History: No coronary disease Physical Exam Vitals Vital Signs Date Time Temp Pulse Resp B/P Pulse Ox O2 Delivery O2 Flow Rate FiO2 12/28/16 01:00 99.0 100 20 149/88 99 Room Air 4.0 12/27/16 23:47 88 18 100 Nasal Cannula 4.0 12/27/16 23:23 Nasal Cannula 3 12/27/16 23:05 99.0 90 20 187/111 97 Room Air 12/27/16 22:50 70 20 187/110 97 Room Air 12/27/16 20:15 99.0 96 20 179/107 99 Physical Exam Const: Well-developed, well-nourished Head: Atraumatic, normocephalic Eyes: Normal Conjunctiva, PERRLA, EOMI, normal sclera, no nystagmus ENT: Normal External Ears, Nose and Mouth, moist mucus membranes. Neck: Full range of motion. No meningismus, no lymphadenopathy. Resp: Clear to auscultation bilaterally, no wheezing, rhonchi, rales Cardio: Regular rate and rhythm, no murmurs, S1 S2 present Abd: Soft, non tender x 4, non distended. Normal bowel sounds, no guarding or rebound, no pulsitile abdominal masses or bruits Skin: No petechiae or rashes, no ecchymosis , no maculopapular rash Back: No midline or flank tenderness Ext: No cyanosis, or edema, FROM x 4, normal inspection, neurovascularly intact x 4 Neur: Awake and alert, STR 5/5 x 4, sensation intact x 4, no focal findings, cerebellum intact Psych: Normal Mood and Affect Result Diagram: 12/27/16231412/27/162314 Results 24 hrs Laboratory Tests Test 12/27/16 23:15 Alanine Aminotransferase (ALT/SGPT) 67IU/L Albumin 4.5g/dl Albumin/Globulin Ratio 1.60 Alkaline Phosphatase 127IU/L Anion Gap 26 Aspartate Amino Transf (AST/SGOT) 40IU/L Basophils # 0.010^3/ul Basophils % 0.5% Blood Morphology Comment Blood Urea Nitrogen 57mg/dl Calcium Level 9.4mg/dl Carbon Dioxide Level 27mmol/L Chloride Level 92mmol/L Creatinine 12.42mg/dl Direct Bilirubin 0.00mg/dl Eosinophils # 0.210^3/ul Eosinophils % 1.7% Globulin 2.80g/dl Glucose Level 115mg/dl Hematocrit 33.0% Hemoglobin 11.2g/dl Indirect Bilirubin 0.3mg/dl Lymphocytes # 1.810^3/ul Lymphocytes % 16.7% Mean Corpuscular Hemoglobin 32.8pg Mean Corpuscular Hemoglobin Concent 33.9g/dl Mean Corpuscular Volume 96.9fl Mean Platelet Volume 9.3fl Monocytes # 0.810^3/ul Monocytes % 7.6% Neutrophils # 8.010^3/ul Neutrophils % 73.5% Nucleated Red Blood Cells # 0.010^3/ul Nucleated Red Blood Cells % 0.0/100WBC Platelet Count 64157^3/UL Potassium Level 5.1mmol/L Red Blood Count 3.4010^6/ul Red Cell Distribution Width 15.3% Sodium Level 140mmol/L Total Bilirubin 0.3mg/dl Total Protein 7.3g/dl Troponin I 0.034ng/ml White Blood Count 10.810^3/ul Current Medications Medications (Trade) Dose Ordered Sig/Patricio Route PRN Reason Start Time Stop Time Status Last Admin Dose Admin Albuterol (Proventil 0.5% (Neb)) 7.5 mg ONCE STAT NEB 12/27/16 23:20 12/27/16 23:23 DC 12/27/16 23:47 Ipratropium [place] (Atrovent 0.02% (Neb)) 1.5 mg ONCE STAT NEB 12/27/16 23:20 12/27/16 23:23 DC 12/27/16 23:47 Nicardipine HCl (Cardene) 30 mg ONCE ONCE PO 12/27/16 23:30 12/27/16 23:31 DC 12/27/16 23:37 Hydralazine HCl (Apresoline) 10 mg ONCE ONCE IV 12/27/16 23:30 12/27/16 23:31 DC 12/27/16 23:38 Procedures/MDM PROCEDURE: CHEST - 1 VIEW CLINICAL INDICATION: 51-year-old male with chest pain. TECHNIQUE: A single frontal AP semi-erect view of the chest was performed portably. The images were reviewed on a PACS workstation. COMPARISON: Chest x-ray December 22, 2016. FINDINGS: The patient has had a prior median sternotomy. The cardiomediastinal silhouette is moderately enlarged but without significant interval change. There is mild pulmonary vascular congestion. There is elevation right hemidiaphragm. There is mild right pleural effusion with basilar compressive atelectasis. There is no evidence for focal consolidation. There is no evidence for pneumothorax. IMPRESSION: 1. Status post median sternotomy. 2. Cardiomegaly. 3. Pulmonary vascular congestion. 4. Elevated right hemidiaphragm. 5. Mild right pleural effusion with basilar compressive atelectasis. .Keven Kelly MD, Date Time Electronically viewed and signed by .Keven Kelly MDMD on 12/28/2016 00:49 .M/ CC: LEYDA BAGLEY DO EKG: Rate/Rhythm: Normal Sinus Rhythm,NL intervals, Q-wave in lead III QRS, ST, QT: NORMAL OR, QRS, QT] Impression: abNORMAL EKG Patient was found to be quite hypertensive and he was treated with hydralazine IV and Cardene p.o. Blood pressure currently is 144/89. He has some mild vascular congestion but his oxygenation is normal. I advised him to have them do an extra hour of dialysis on Thursday. Denise shortness of breath due to a combination of some mild vascular congestion, elevated blood pressure and likely bronchitis. After his blood pressure is lowered in his breathing treatment was given the patient states he feels much better. I will have him take metoprolol 25 mg twice daily and continue losartan at 100 Departure Diagnosis: Primary Impression: Bronchitis Additional Impressions: Pulmonary vascular congestion Uncontrolled hypertension Condition: Stable Patient Instructions: High Blood Pressure (Hypertension), Bronchitis, No Antibiotic (Adult) LEYDA BAGLEY DO Dec 28, 2016 01:24
== END 2016-12-28 01:45 | disposition home or self-care (01) ==
LOC: E/R 20:11
DX: J40 Bronchitis, not specified as acute or chronic (principal); R09.89 Other specified symptoms and signs involving the circulatory and respiratory systems; I12.9 Hypertensive chronic kidney disease with stage 1 through stage 4 chronic kidney disease, or unspecified chronic kidney disease; N18.9 Chronic kidney disease, unspecified; Z79.82 Long term (current) use of aspirin; Z99.2 Dependence on renal dialysis; Z95.1 Presence of aortocoronary bypass graft; Z87.891 Personal history of nicotine dependence
CPT/HCPCS: 36415; 71010; 80053; 84484; 85025; 94644; 96374; 99285; J0360; 93005

== ENCOUNTER 2017-02-17 14:52 | Emergency (ER) | payer MEDICARE, OTHER ==
[~2017-02-17] VITALS: Ht 167.6 cm; Wt 85.0 kg
[~2017-02-17 14:52] MED LIST changes: +ALBU8.5H3 INH; +PRED20TA PO
[2017-02-17 14:58] VITALS: Ht 167.6 cm; Wt 85.0 kg
[2017-02-17] MEDS ORDERED: predniSONE 20 MG TAB PO STA (16:15)
[2017-02-17] MEDS ORDERED: ALBUTEROL 0.5% (NEB) 2.5 MG/0.5 ML AMP INH STA (16:15)
--- NOTE | 2017-02-17 17:54 | RADRPT ---
PROCEDURE: XR Chest. CLINICAL INDICATION: Abdominal pain. TECHNIQUE: Single frontal view. COMPARISON: 12/27/2016. FINDINGS: There is mild pulmonary edema, improved. The lungs are otherwise clear. The heart is enlarged. There are sternal wires and mediastinal clips. There is a small right pleural effusion. There is no left pleural effusion. There is no pneumothorax. IMPRESSION: 1. Mild pulmonary edema, improved. 2. Cardiomegaly. 3. Previous median sternotomy. 4. Small right pleural effusion. 5. Otherwise unremarkable study. RPTAT: QQ .Del Ellsworth MD, MD Date Time Electronically viewed and signed by .Del Ellsworth MD, MD on 02/17/2017 17:54 .R/
[2017-02-17] MEDS ORDERED: LEVOFLOXACIN 500 MG TAB PO ONE (18:00)
[2017-02-17] MEDS ORDERED: LEVO500T10 PO (18:06)
[2017-02-17] MEDS ORDERED: ALBU8.5H3 INH (18:06)
[2017-02-17] MEDS ORDERED: IBUP-1542 PO (18:06)
[2017-02-17 18:20] VITALS: BP 186/105; PULSE 89; RESP 19; TEMP 98.8
--- NOTE | 2017-02-17 18:51 | ERD ---
ER Documentation Chief Complaint Date/Time DATE: 02/17/17 TIME: 18:43 Chief Complaint shortness of breath and headache x3 days HPI 51-year-old man complains of 3 days of congestion, cough, headache, and asthma. He's been using albuterol at home without relief, he's had tactile fevers as well, as had no sore throat, no difficulty swallowing, no calf or leg swelling. Patient denies chest pain or abdominal pain. He's had no recent travel or antibiotic use. ROS All systems reviewed and are negative except as per history of present illness. Medications Home Meds Active Scripts Levofloxacin* (Levofloxacin*) 500 Mg Tablet, 500 MG PO DAILY, #6 TAB Prov:GARY PHILLIPS MD 02/17/17 Albuterol Sulfate* (Proair HFA*) 8.5 Gm Hfa.aer.ad, 2 PUFF INH Q6H Y for COUGH, #1 INHALER Prov:GARY PHILLIPS MD 02/17/17 Ibuprofen* (Motrin*) 600 Mg Tab, 600 MG PO Q8 for PAIN AND/OR INFLAMMATION, #30 TAB Prov:GARY PHILLIPS MD 02/17/17 Prednisone* (Prednisone*) 20 Mg Tab, 40 MG PO DAILY for 4 Days, TAB Prov:LEYDA BAGLEY DO 12/28/16 Albuterol Sulfate* (Proair HFA*) 8.5 Gm Hfa.aer.ad, 2 PUFF INH Q4, #1 INHALER Prov:LEYDA BAGLEY DO 12/28/16 Reported Medications Losartan Potassium* (Losartan Potassium*) 100 Mg Tablet, 100 MG PO DAILY, TAB 12/21/16 Atorvastatin* (Atorvastatin*) 40 Mg Tablet, 40 MG PO QHS, #30 TAB 12/21/16 Metoprolol Succinate* (Toprol XL*) 25 Mg Tab.sr.24h, 25 MG PO DAILY, #30 TAB 12/21/16 Multivit/Ca Carb/B Cmplx/Fa* (Ayesha-Lyndsay*) 1 Tab Tab, 1 TAB PO DAILY 09/05/12 Aspirin Ec (Aspir 81) 81 Mg Tablet.dr, 81 MG PO DAILY 08/09/12 Sevelamer Hcl* (Renagel*) 800 Mg Tablet, 800 MG PO TID 08/09/12 Allergies Allergies: Coded Allergies: No Known Allergies (Verified Allergy, Unknown, 12/27/16) PMhx/Soc Hypertension, coronary artery disease, previous coronary artery bypass graft, previous CA, asthma History of Surgery: Yes (CABG, SANTINO fistula) Anesthesia Reaction: No Hx Neurological Disorder: No Hx Respiratory Disorders: No Hx Cardiac Disorders: Yes (HTN elev. cholesterol) Hx Psychiatric Problems: No Hx Miscellaneous Medical Probl: Yes (CKD, Dialysis m/w/f) Hx Alcohol Use: No Hx Substance Use: No Hx Tobacco Use: No Smoking Status: Former smoker FmHx Family History: No diabetes Physical Exam Vitals Vital Signs Date Time Temp Pulse Resp B/P Pulse Ox O2 Delivery O2 Flow Rate FiO2 02/17/17 18:20 98.8 89 19 186/105 100 Room Air 02/17/17 16:48 100 20 97 21 02/17/17 14:58 98.8 88 19 176/99 98 Physical Exam GENERAL: Well-developed, well-nourished, well-hydrated, in no apparent distress , looks nontoxic in appearance, afebrile HEENT: Moist mucous membranes, pink conjunctiva, no cervical spine tenderness or step-off deformities, no goiter, no jaundice or icterus, extraocular movements intact without pain. No submandibular induration, and no pharyngeal erythema NEURO: Alert and oriented 3, cranial nerves II through XII intact bilaterally, pupils equal round reactive to light, no focal deficits or facial asymmetry, sensation intact distally Strength 5/5 in upper and lower extremities bilaterally CARDIAC: Regular rate and rhythm, no murmurs rubs or gallops LUNGS: Scattered wheezes bilaterally, no crackles or stridor ABDOMEN: Soft nontender, no guarding, no rigidity, no rebound, no psoas sign no obturator sign. Normoactive bowel sounds SKIN: Warm and dry to touch, no abrasions, contusions, or hematomas, no lacerations, no ecchymosis, no target lesions, and without ulcers EXTREMITIES: No clubbing cyanosis or edema, calves are bilaterally symmetrical, no Homans sign, no popliteal cord sign. Distal pulses equal and bilateral PSYCH: Normal affect without agitation or irritability Results 24 hrs Current Medications Medications (Trade) Dose Ordered Sig/Patricio Route PRN Reason Start Time Stop Time Status Last Admin Dose Admin Albuterol (Proventil 0.5% (Neb)) 10 mg ONCE STAT INH 02/17/17 16:15 02/17/17 16:16 DC 02/17/17 16:48 Prednisone (Prednisone) 60 mg ONCE STAT PO 02/17/17 16:15 02/17/17 16:16 DC 02/17/17 16:38 Levofloxacin (Levaquin) 500 mg ONCE ONCE PO 02/17/17 18:00 02/17/17 18:01 DC 02/17/17 18:14 Procedures/MDM Patient was placed on ekg monitor tech rhythm strip revealed a sinus rhythm at about 80 bpm with upright P and T waves. Patient was afebrile. I administered prednisone 60 mg by mouth and albuterol 10 mg via nebulizer with excellent response. Patient's symptoms improved. Pulmonary exam was repeated after medications were administered and prior to discharge, his respiratory rate was 18 breaths per minute and normal, oxygen saturation was 100%, lung sounds were clear. One view chest x-ray performed, read by me has sternotomy wires in place and mild pleural effusion with a right middle lobe infiltrate, no pneumothorax, no and of the diaphragm. EKG performed, read by me revealed a normal sinus rhythm 83 bpm, normal axis, right ventricular conduction delay with a QRS duration of 112 ms, no concerning ST elevations or depressions noted. I administered levofloxacin 500 mg by mouth 1. Differential diagnoses considered, included but not limited to acute coronary syndrome, pulmonary embolism, aortic dissection, abdominal aortic aneurysm, sepsis, stroke, meningitis, encephalitis, pneumonia, appendicitis, cholecystitis , bowel obstruction, pyelonephritis, nephrolithiasis, cystitis, as well as metabolic, hematologic, and electrolyte abnormalities. As well as abscess, cellulitis, fractures, and dislocations. Patient feels much better at this time and symptoms have improved. Patient states he has to use his nighttime antihypertensives when he gets home. I did give strict instructions to return to the ED if symptoms continue or worsen, patient will otherwise follow-up with primary care physician. Patient understood instructions and agreed to plan. Departure Diagnosis: Primary Impression: Asthma Asthma severity: moderate persistent Asthma complication type: with acute exacerbation Qualified Code: J45.41 - Moderate persistent asthma with acute exacerbation Additional Impressions: Hypertension Hypertension type: essential hypertension Qualified Code: I10 - Essential hypertension Pneumonia Pneumonia type: due to unspecified organism Laterality: right Lung location : middle lobe of lung Qualified Code: J18.9 - Pneumonia of right middle lobe due to infectious organism Condition: Good Patient Instructions: Pneumonia (Adult) GARY PHILLIPS MD Feb 17, 2017 18:51
== END 2017-02-17 18:35 | disposition home or self-care (01) ==
LOC: FTE 14:52
DX: J45.41 Moderate persistent asthma with (acute) exacerbation (principal); J18.9 Pneumonia, unspecified organism; I25.10 Atherosclerotic heart disease of native coronary artery without angina pectoris; I12.9 Hypertensive chronic kidney disease with stage 1 through stage 4 chronic kidney disease, or unspecified chronic kidney disease; N18.9 Chronic kidney disease, unspecified; Z79.82 Long term (current) use of aspirin; Z95.1 Presence of aortocoronary bypass graft; Z87.891 Personal history of nicotine dependence
CPT/HCPCS: 71010; 93005; 94644; 99284; J7512

== ENCOUNTER 2018-01-11 00:54 | Emergency (ER) | END 2018-01-11 05:47 | disposition home or self-care (01) ==